=== PATIENT | female | born 1995 | race Caucasian/White ===

== ENCOUNTER 2016-11-06 19:32 | Emergency (ER) | payer OTHER ==
[2016-11-06 19:56] VITALS: BP 109/73; PULSE 81; TEMP 98.2; BMI 29.4
--- NOTE | 2016-11-06 20:10 | PDOC ---
History of Present Illness - General Chief Complaint: Ear Problem Stated Complaint: BLEEDING FROM EAR Time Seen by Provider: 11/06/16 20:09 History Source: Patient Exam Limitations: No Limitations - History of Present Illness Initial Comments: CHIEF COMPLAINT: 21 y/o female with left ear pain today. HISTORY OF PRESENT ILLNESS: Pt used q-tip in left ear this morning. Saw some blood this morning. Was fine all day. Small amount of bleeding tonight. Minimal pain. No other sxs. Vital signs on arrival are within normal limits. REVIEW OF SYSTEMS: GENERAL/CONSTITUTIONAL: No fever/chills. No weakness. No weight change. HEAD, EYES, EARS, NOSE AND THROAT: No change in vision. +minimal ear pain. + bleeding from left ear. No sore throat. MUSCULOSKELETAL: No joint or muscle swelling or pain. No neck or back pain. SKIN: No rash or easy bruising. NEUROLOGIC: No headache, vertigo, loss of consciousness, or loss of sensation. PHYSICAL EXAM: GENERAL: The patient is awake, alert, and fully oriented, in no acute distress. HEAD: Normal with no signs of trauma. ENT: small abrasion to inferior wall of left canal with no active bleeding. No swelling or erythema to left canal. Left TM normal without erythema or rupture. No pain with palpation of left tragus. EXTREMITIES: Normal range of motion, no edema. NEUROLOGICAL: Normal speech, normal gait. SKIN: Warm, Dry, normal turgor, no rashes or lesions noted. Past History - Past Medical History Allergies/Adverse Reactions: Allergies Allergy/AdvReac Type Severity Reaction Status Date / Time No Known Allergies Allergy Verified 11/06/16 19:52 Home Medications: Ambulatory Orders NK [No Known Home Medication] 11/06/16 Other medical history: Pt denies - Psycho/Social/Smoking Cessation Hx Suicidal Ideation: No Smoking History: Never smoked Information on smoking cessation initiated: No Hx Alcohol Use: No Drug/Substance Use Hx: No Substance Use Type: None *Physical Exam - Vital Signs Last Vital Signs Temp Pulse Resp BP Pulse Ox 98.2 F 81 19 109/73 99 11/06/16 19:53 11/06/16 19:53 11/06/16 19:53 11/06/16 19:53 11/06/16 19:53 Medical Decision Making - Medical Decision Making A/P: 21 y/o female with abrasion to left ear canal. Instructed her to apply a few drops of hydrogen peroxide into left ear tonight and a few times tomorrow. Instructed her to avoid putting anything in her ear including q-tips. Instructed her to return to the ER with any worsening or concerning symptoms. The patient verbalizes understanding of all instructions, has no further questions and is awaiting discharge. *DC/Admit/Observation/Transfer Diagnosis at time of Disposition: Ear canal abrasion Qualifiers: Encounter type: initial encounter Laterality: left Qualified Code(s): S00.412A - Abrasion of left ear, initial encounter - Discharge Dispostion Disposition: HOME Condition at time of disposition: Good - Referrals Referrals: Concha Bacon MD [Primary Care Provider] - - Patient Instructions Printed Discharge Instructions: DI for Abrasion Additional Instructions: DIscharge Instructions: -Put a few drops of hydrogen peroxide in your affected ear 3 times per day to keep it clean for the next 2 days -Do not use Q-tips -Return to the ER with any worsening or concerning symptoms.
== END 2016-11-06 20:35 | disposition home or self-care (01) ==
LOC: JERFT 19:32
DX: S00.412A Abrasion of left ear, initial encounter (principal); X58.XXXA Exposure to other specified factors, initial encounter; Y93.89 Activity, other specified; Y92.9 Unspecified place or not applicable
CPT/HCPCS: 99281-25

== ENCOUNTER 2017-07-30 20:23 | Emergency (ER) | payer OTHER ==
[2017-07-30 20:38] VITALS: BP 100/63; PULSE 84; TEMP 97.6; BMI 28.3
--- NOTE | 2017-07-30 20:43 | PDOC ---
Rapid Medical Evaluation Time Seen by Provider: 07/30/17 20:33 Medical Evaluation: Allergies Allergy/AdvReac Type Severity Reaction Status Date / Time No Known Allergies Allergy Verified 11/06/16 19:52 07/30/17 20:33 Pt c/o: back pain intermittently x 1 year, no urinary complaints, no fever, worse with movement Pt on brief exam: no cva tenderness Pt ordered for : none Pt to proceed to the ED Discharge Disposition - Diagnosis Back pain - Referrals - Patient Instructions - Post Discharge Activity
[2017-07-30] MEDS ORDERED: IBUPROFEN 600 MG TABLET (FP) PO ONE ×2 (21:17→21:19)
--- NOTE | 2017-07-30 21:23 | PDOC ---
History of Present Illness - General Chief Complaint: Pain Stated Complaint: BACK PAIN Time Seen by Provider: 07/30/17 20:33 History Source: Patient Exam Limitations: No Limitations - History of Present Illness Initial Comments: 07/30/17 21:18 Patient here with complaints of low back pain 1 year. States slipped and fell on the ice last year and has intermittent back spasm and pain since that time. Has never been evaluated, has not taken any medication for relief of same. Denies numbness or tingling to foot, but states pain is midpoint right gluteus and radiates down posterior aspect of her right leg. Denies dysuria, any vaginal complaints, any problems with bowel. Is not sexually active. Occurred: reports: other Severity: reports: mild, moderate Pain Location: reports: back Modifying Factors: improves with: None Loss of Consciousness: no loss of consciousness Past History - Travel Traveled outside of the country in the last 30 days: No Close contact w/someone who was outside of country & ill: No - Past Medical History Allergies/Adverse Reactions: Allergies Allergy/AdvReac Type Severity Reaction Status Date / Time No Known Allergies Allergy Verified 07/30/17 20:34 Home Medications: Ambulatory Orders Cyclobenzaprine HCl 10 mg PO Q8H PRN #14 tablet 07/30/17 Ibuprofen [Motrin -] 400 mg PO QID PRN #28 tablet 07/30/17 COPD: No - Suicide/Smoking/Psychosocial Hx Smoking History: Never smoked Have you smoked in the past 12 months: No Information on smoking cessation initiated: No Hx Alcohol Use: No Drug/Substance Use Hx: No Substance Use Type: None Review of Systems - Review of Systems Able to Perform ROS?: Yes Is the patient limited Turkmen proficient: Yes Constitutional: Yes: See HPI, Malaise. No: Symptoms Reported HEENTM: Yes: See HPI. No: Symptoms Reported Musculoskeletal: Yes: Symptoms Reported, See HPI, Back Pain, Muscle Pain, Muscle Weakness Integumentary: Yes: See HPI. No: Symptoms Reported, Bruising All Other Systems: Reviewed and Negative *Physical Exam - Vital Signs Last Vital Signs Temp Pulse Resp BP Pulse Ox 97.6 F 84 19 100/63 100 07/30/17 20:36 07/30/17 20:36 07/30/17 20:36 07/30/17 20:36 07/30/17 20:36 - Physical Exam General Appearance: Yes: Nourished, Appropriately Dressed, Apparent Distress, Mild Distress HEENT: positive: OMID, Normal ENT Inspection, TMs Normal, Pharynx Normal Neck: positive: Tender, Supple Respiratory/Chest: positive: Lungs Clear, Normal Breath Sounds Gastrointestinal/Abdominal: positive: Soft Musculoskeletal: positive: Normal Inspection, Muscle Spasm (tension and reproduce tenderness with deep palpation to midpoint right gluteus, no crepitus or step-offs to spine). negative: Vertebral Tenderness Extremity: positive: Normal Range of Motion Integumentary: positive: Normal Color, Dry, Warm Neurologic: positive: wellness ambassador II-XII NML intact, Fully Oriented, Alert *DC/Admit/Observation/Transfer Diagnosis at time of Disposition: Back pain Qualifiers: Back pain location: low back pain Chronicity: chronic Back pain laterality: right Sciatica presence: with sciatica Sciatica laterality: sciatica of right side Qualified Code(s): M54.41 - Lumbago with sciatica, right side; G89.29 - Other chronic pain; G89.29 - Other chronic pain - Discharge Dispostion Disposition: HOME Condition at time of disposition: Stable Admit: No - Referrals Referrals: Rob Wiley MD [Staff Physician] - - Patient Instructions Printed Discharge Instructions: DI for Back Strain or Sprain Additional Instructions: Rest, no heavy lifting or exercise until pain is resolved Hot soaks to neck and low back as often as possible/hot showers or Jacuzzis No massage or therapy until spasm is gone Continue ibuprofen 2-200 mg tablets every 6 hours for the next 3 days then as needed for pain and swelling Cyclobenzaprine 1-10mg every 8 hours as needed for spasm If not significant improvement within 24 hours with medication and rest regime, followup with private physician for change in medications and /or therapy. - Post Discharge Activity Forms/Work/School Notes: Back to Work
== END 2017-07-30 21:27 | disposition home or self-care (01) ==
LOC: JERFT 20:23
DX: M54.41 Lumbago with sciatica, right side (principal); G89.29 Other chronic pain
CPT/HCPCS: 99281-25